=== PATIENT | female | born 1975 | race Two or more races ===

== ENCOUNTER 2017-12-14 08:55 | Emergency (ER) | payer MEDICAID ==
[~2017-12-14] VITALS: Ht 157.5 cm; Wt 105.7 kg
[2017-12-14 10:10] LABS: Urine Bacteria NONE SEEN /hpf (None Seen); Urine Blood 3+ /uL (Negative); Urine Specific Gravity 1.014 (1.001-1.035); Urine WBC 184 /hpf (0 - 5)
[2017-12-14 10:24] LABS: Basophils # (auto) 0 uL; Basophils % (auto) 0.4 % (0.0-2.0); Eosinophils # (auto) 0.1 uL; Eosinophils % (auto) 1.9 % (0.0-7.0); Hematocrit 29.3 % (36.0-46.0); Hemoglobin 9.5 g/dL (12.2-16.2); Lymphocytes # (auto) 2.2 uL; Lymphocytes % (auto) 30.5 % (10.0-50.0); Mean Corpuscular Hemoglobin 27.3 pg (28.0-32.0); Mean Corpuscular Hgb Conc. 32.5 g/dL (32.0-36.0); Mean Corpuscular Volume 83.9 fL (80.0-100.0); Monocytes # (auto) 0.5 uL; Monocytes % (auto) 6.6 % (0.0-12.0); Neutrophils # (auto) 4.4 uL; Neutrophils % (auto) 60.6 % (37.0-80.0); Nucleated Red Blood Cells % 0.1 %; Platelet Count (auto) 396 10^3/uL (140-450); Red Blood Cells 3.49 10^6/uL (4.0-5.20); Red Cell Distribution Width 17.8 % (11.8-14.3); White Blood Cell 7.3 10^3/uL (4.4-10.8)
[2017-12-14 10:45] LABS: Albumin 3.1 g/dL (3.4-5.0); BUN/Creatinine Ratio 12.2; Bilirubin, Total 0.1 mg/dL (0.2-1.0); Calcium 8.3 mg/dL (8.5-10.1); Potassium 3.9 mmol/L (3.5-5.1)
[2017-12-14] MEDS ORDERED: medroxyPROGESTERone ACETATE 5 MG TAB PO ONE (12:15)
[2017-12-14 12:36] VITALS: BP 154/76
== END 2017-12-14 12:49 | disposition home or self-care (01) ==
LOC: ER 08:55
DX: N92.0 Excessive and frequent menstruation with regular cycle (principal)
CPT/HCPCS: 36415; 76856; 80053; 81001; 84702; 85025

== ENCOUNTER 2020-12-16 21:08 | Emergency (ER) | payer MEDICAID, OTHER ==
[~2020-12-16] VITALS: Ht 157.5 cm; Wt 104.3 kg
[2020-12-16 23:21] VITALS: BP 145/83
== END 2020-12-16 23:50 | disposition home or self-care (01) ==
LOC: ER 21:09
DX: K64.4 Residual hemorrhoidal skin tags (principal); E03.9 Hypothyroidism, unspecified; Z86.2 Personal history of diseases of the blood and blood-forming organs and certain disorders involving the immune mechanism

== ENCOUNTER 2024-07-05 11:31 | Emergency (ER) | payer MEDICAID, OTHER ==
[~2024-07-05] VITALS: Ht 157.5 cm; Wt 112.0 kg
[2024-07-05 13:46] LABS: Urine Bacteria FEW /hpf (None Seen); Urine Blood 3+ /uL (Negative); Urine Clarity Clear (Clear); Urine Color Light-Yellow (Yellow); Urine Protein, UAD TRACE (Negative); Urine Squamous Epithelial Cell FEW /hpf (<5); Urine Urobilinogen Normal (Negative); Urine WBC 10 /HPF (0-5)
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
[2024-07-05 14:01] LABS: Chloride 107 mmol/L (98-107); Potassium 3.9 mmol/L (3.5-5.1); Sodium 140 mmol/L (136-145)
[2024-07-05 14:02] LABS: Anion Gap 6 (5-15); Calcium 9.7 mg/dL (8.7-10.4); Carbon Dioxide 27 mmol/L (20-31)
[2024-07-05 14:04] LABS: Basophils # (auto) 0 10 ^3/uL (0-0.2); Basophils % (auto) 0.5 % (0.0-2.0); Eosinophils # (auto) 0.1 10 ^3/uL (0-0.8); Eosinophils % (auto) 1.5 % (0.0-7.0); Hematocrit 40.5 % (36.0-46.0); Hemoglobin 13.2 g/dL (12.2-16.2); Lymphocytes # (auto) 2.7 10 ^3/uL (0.4-5.4); Lymphocytes % (auto) 34.5 % (10.0-50.0); Mean Corpuscular Hemoglobin 27.1 pg (28.0-32.0); Mean Corpuscular Hgb Conc. 32.6 g/dL (32.0-36.0); Mean Corpuscular Volume 83.2 fL (80.0-100.0); Monocytes # (auto) 0.5 10 ^3/uL (0-1.3); Monocytes % (auto) 5.8 % (0.0-12.0); Neutrophils # (auto) 4.5 10 ^3/uL (1.6-8.6); Neutrophils % (auto) 57.7 % (37.0-80.0); Nucleated Red Blood Cells % 0.3 %; Platelet Count (auto) 390 10^3/uL (140-450); Red Blood Cells 4.87 10^6/uL (4.0-5.20); White Blood Cell 7.7 10^3/uL (4.4-10.8)
[2024-07-05 14:07] LABS: Glucose 93 mg/dL (74-106)
[2024-07-05 14:08] LABS: Red Cell Distribution Width 20.4 % (11.8-14.3)
[2024-07-05 14:09] LABS: Blood Urea Nitrogen 9 mg/dL (9-23)
[2024-07-05 14:21] VITALS: BP 118/71; PULSE 61; RESP 18; TEMP 98.1; O2SAT 99
[2024-07-05] MEDS ORDERED: IBUP-1454 PO (14:26)
[2024-07-05] MEDS ORDERED: NITR-87 PO (14:26)
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
== END 2024-07-05 14:38 | disposition home or self-care (01) ==
LOC: ER 11:31
DX: N39.0 Urinary tract infection, site not specified (principal); R68.84 Jaw pain; Z98.890 Other specified postprocedural states; Y04.8XXA Assault by other bodily force, initial encounter; Y93.89 Activity, other specified; Y92.89 Other specified places as the place of occurrence of the external cause; Y99.8 Other external cause status
CPT/HCPCS: 36415; 70486; 80048; 81001; 85025

== ENCOUNTER 2025-01-10 18:17 | Inpatient (IN) | payer BC, MEDICAID ==
[~2025-01-10] VITALS: Ht 165.1 cm; Wt 76.3 kg
[~2025-01-10 18:17] MED LIST: IBUP-1454 PO; NITR-87 PO
[2025-01-10 18:45] LABS: Hematocrit 37.5 % (36.0-46.0); Hemoglobin 12.8 g/dL (12.2-16.2); Mean Corpuscular Hemoglobin 30.1 pg (28.0-32.0); Mean Corpuscular Volume 87.9 fL (80.0-100.0); Nucleated Red Blood Cells % 0.2 %
--- NOTE | 2025-01-10 18:53 | ED.PDOC ---
HPI Comments HPI: 49 year old female presents to the emergency department with a chief complaint of chest pain onset 2 weeks. Patient has been experiencing intermittent anterior chest pain for the past 2 weeks, pain radiates to Rt arm. For the past 3 days, patient has been experiencing headache as well as nausea. Denies fever, chills, cough, cold, congestion, shortness of breath, numbness/tingling, fall, injury, dizziness, blurred vision. No other symptoms or modifying factors present at this time. Initial Vitals BP: 143/65 HR: 64 RR: 16 O2: 99% Temp: 98.1 F Past Medical History: DM, HLD, thyroid disease, IBS Past 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: , hernia repair Social History: Denies ETOH, smoking, and drug use. Medications: Denies Allergies: NKDA Patient states having family history of coronary artery disease on mother side HPI: Poor Historian. REVIEW OF SYSTEMS: CONSTITUTIONAL: Denies acute: fever, diaphoresis, chills, HEAD: Denies acute: photophobia Eyes: Denies acute: Double vision, vision loss, eye pain, eye discharge. EARS: Denies acute: tinnitus, hearing loss, ear discharge, ear pain, THROAT: Denies acute: sore throat, swelling, difficulty swallowing , pain with swallowing, change in voice. NECK: Denies acute: neck pain, neck swelling, stiff neck. HEART: Denies acute : , palpitations, LUNGS: Denies acute: SOB, wheezing, cough, hemoptysis ABDOMEN: Denies acute: abdominal pain, Vomiting, diarrhea, melena , hematemesis, hematochezia SKIN: Denies acute: rash, redness, lesions, itchiness. EXTREMITIES: Denies acute: calf pain, numbness, tingling, weakness, Denies acute: Low back pain. Neuro: Denies acute: focal neurological deficit, motor or sensory focal neurological deficit, tremors, seizure like activity, confusion, dizziness, change in mental status, loss of bowel or bladder function, cauda equina like symptoms. : Denies acute: dysuria, hematuria, flank pain, increase in urinary frequency. PSYCH: Denies acute: hallucination, suicidal ideation, homicidal ideation. FEMALE: Denies acute: abnormal vaginal bleeding, foul odor, unusual discharge. PHYSICAL EXAM: General: -----mild---acute distress, awake and alert. Head: normocephalic, atraumatic. Neck: supple, trachea is midline, no swelling. Throat: Normal phonation. Eyes:, no erythema, no purulent discharge, no proptosis, no icterus. Heart: regular rate, regular rhythm, no significant murmur appreciated. Lungs: no apparent respiratory distress, Able to speak in full sentences. No wheezing, no rhonchi, no crackles. No stridors Clear to auscultation bilaterally. Abdomen: non tender to palpation, non distended, soft, no guarding, no rebound, + bowel sounds. Obese Neuro: Awake, Alert, oriented to name, self, situation, follows commands GCS=15. Speech is normal. Skin: no petechia, no purpura, no cyanosis, non-pale, not jaundice. Lower extremities: --no - Pitting edema no deformity, no focal swelling, no calf TTP. Makes eye contact. moves all four extremities. Face: no apparent facial droop. Ambulating in the ED independently. ED COURSE: DISCLAIMER: This medical document was created using an electronic medical record system with voice recognition software and computerized dictation system. Although this document has been carefully reviewed, there might still be some phonetic and typ ographical errors. Occasional wrong-word or "sound-alike" substitutions may have occurred due to the inherent limitations of voice recognition software. These areas are purely typographical due to imperfections of the software programs and do not reflect any compromise in the patient's medical care. Please read the chart carefully and recognize, using context, where these substitutions have occurred. Chief Complaint: Chest Pain Time Seen by MD: 18:25 Primary Care Provider: NEGRO Danielle Notes: Medications, Allergies Allergies: Coded Allergies: NO KNOWN ALLERGIES (Unverified , 10/26/17) Home Meds Active Scripts Ibuprofen (Ibuprofen) 600 Mg Tab, 1 TAB PO TID for 10 Days, #30 TAB 0 Refills Prov:CINDY ESPINAL COMPUTER TEACHER 07/05/24 Nitrofurantoin Monohydrate Mac (Macrobid) 100 Mg Cap, 100 MG PO BID for 7 Days, #14 CAP 0 Refills Prov:CINDY ESPINAL NP 07/05/24 Information Source: Patient Mode of Arrival: Ambulatory Severity: Moderate Timing: Weeks Duration: Intermittent Prehospital treatment: None Past Medical History PAST MEDICAL HISTORY: Anemia, DM, Gallstones, High Lipids, Thyroid 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 Was a procedure done?: No X-Ray, Labs, Meds, VS Vital Signs Date Time Temp Pulse Resp B/P (MAP) Pulse Ox O2 Delivery O2 Flow Rate FiO2 01/10/25 18:52 59 01/10/25 18:41 59 18 98 Room Air 01/10/25 18:41 98.2 59 18 144/81 (102) 98 98.2 01/10/25 18:26 98.1 64 16 143/65 99 98.1 01/10/25 18:21 59 Lab Test 01/10/25 19:25 01/10/25 18:36 01/10/25 18:25 Range/Units Troponin I High Sensitivity Pending < 3 L </=34 ng/L Urine Color Pending Urine Clarity Pending Urine pH Pending Urine Specific [place] Pending Urine Protein Pending Urine Ketones Pending Urine Blood Pending Urine Nitrite Pending Urine Bilirubin Pending Urine Urobilinogen Pending Urine Leukocyte Esterase Pending Urine RBC Pending Urine Microscopic WBC Pending Urine Squamous Epithelial Cells Pending Urine Bacteria Pending Urine Glucose Pending White Blood Count 9.0 4.4-10.8 10^3/uL Red Blood Count 4.26 4.0-5.20 10^6/uL Hemoglobin 12.8 12.2-16.2 g/dL Hematocrit 37.5 36.0-46.0 % Mean Corpuscular Volume 87.9 80.0-100.0 fL Mean Corpuscular Hemoglobin 30.1 28.0-32.0 pg Mean Corpuscular Hemoglobin Concent 34.3 32.0-36.0 g/dL Red Cell Distribution Width 13.6 11.8-14.3 % Platelet Count 411 140-450 10^3/uL Mean Platelet Volume 8.7 6.9-10.8 fL Neutrophils (%) (Auto) 54.6 37.0-80.0 % Lymphocytes (%) (Auto) 36.7 10.0-50.0 % Monocytes (%) (Auto) 6.3 0.0-12.0 % Eosinophils (%) (Auto) 2.0 0.0-7.0 % Basophils (%) (Auto) 0.4 0.0-2.0 % Neutrophils # (Auto) 4.9 1.6-8.6 10 ^3/uL Lymphocytes # (Auto) 3.3 0.4-5.4 10 ^3/uL Monocytes # (Auto) 0.6 0-1.3 10 ^3/uL Eosinophils # (Auto) 0.2 0-0.8 10 ^3/uL Basophils # (Auto) 0 0-0.2 10 ^3/uL Nucleated Red Blood Cells 0.2 % Sodium Level 142 136-145 mmol/L Potassium Level 3.7 3.5-5.1 mmol/L Chloride Level 107 98-107 mmol/L Carbon Dioxide Level 26 20-31 mmol/L Anion Gap 9 5-15 Blood Urea Nitrogen 8 L 9-23 mg/dL Creatinine 0.79 0.550-1.02 mg/dL Glomerular Filtration Rate Calc 92 >90 mL/min BUN/Creatinine Ratio 10.1 10.0-20.0 Serum Glucose 98 74-106 mg/dL Calcium Level 9.1 8.7-10.4 mg/dL [place] [id number] Ph: [phone] DIAGNOSTIC IMAGING Diagnostic Imaging Report : [id number] Signed PATIENT: IAN MURCIA ACCT: [id number] UNIT: [id number] : 1975 LOC: ER ROOM / BED: / AGE / SEX: 49 / F ADM STATUS: REG ER SERVICE [id number] ORDERING PHYSICIAN: PRIETO VILLEGAS PROCEDURE(s): CXR1 - CHEST XRAY 1 VIEW REASON: cp ORDER NUMBER(s): [id number], ACCESSION NUMBER(s): [id number] CLINICAL HISTORY: cp TECHNIQUE: Single view of the chest was obtained. COMPARISON: CHEST XRAY 1 VIEW on DOS: 11/05/20 FINDINGS: The heart size and pulmonary vasculature are normal. The lungs are clear. IMPRESSION: NO ACUTE CARDIOPULMONARY PROCESS. ATED BY: KARELY PEÑA MD DICTATED DATE/TIME: 01/10/251902 SIGNED BY: KARELY PEÑA MD SIGNED DATE/TIME: 01/10/251902 CC: Time of 1ST Reevaluation: 18:55 Reevaluation 1ST: Unchanged Patient Education/Counseling: Diagnosis, Treatment Family Education/Counseling: No Family Present Departure 1 Departure Time of Disposition: 18:55 Impression: Primary Impression: Chest pain Disposition: ADMITTED INPATIENT Admit to: Tele Condition: Guarded Discharged With: Self Critical Care Note Critical Care Time?: No I personally scribed for ENA LU DO ([email or web address]) on 01/10/25 at 18:52. Electronically submitted by Qiana Connors ([email or web address]). I personally scribed for ENA LU DO ([email or web address]) on 01/10/25 at 19:36. Electronically submitted by Qiana Connors ([email or web address]). ENA LU DO Jan 10, 2025 18:52
[2025-01-10 18:55] LABS: Potassium 3.7 mmol/L (3.5-5.1); Sodium 142 mmol/L (136-145)
[2025-01-10 18:56] LABS: Anion Gap 9 (5-15); Calcium 9.1 mg/dL (8.7-10.4); Carbon Dioxide 26 mmol/L (20-31)
[2025-01-10 19:01] LABS: BUN/Creatinine Ratio 10.1 (10.0-20.0); Blood Urea Nitrogen 8 mg/dL (9-23); Chloride 107 mmol/L (98-107); Glucose 98 mg/dL (74-106)
--- NOTE | 2025-01-10 19:06 | DVH ---
CLINICAL HISTORY: cp TECHNIQUE: Single view of the chest was obtained. COMPARISON: CHEST XRAY 1 VIEW on DOS: 11/05/20 FINDINGS: The heart size and pulmonary vasculature are normal. The lungs are clear. IMPRESSION: NO ACUTE CARDIOPULMONARY PROCESS.
[2025-01-10 19:34] LABS: Urine Protein, UAD Negative (Negative)
[2025-01-10] MEDS: ASPirin-EC 325mg tab PO ONE (19:48)
--- NOTE | 2025-01-10 20:37 | DVHHPRES ---
History of Present Illness Resident Creating Document: SANDRA PAIGE RESIDENT History of Present Illness This is a 49 year old female with past medical history of diabetes mellitus type 2, hyperlipidemia, thyroid disease, presented to the ER with chief complain of chest pain. Pain started suddenly 2-4 weeks back, located in the right side of the chest, alternates between the left and right side, described as sharp, stabbing, 8/10, lasting for few seconds, relieved with putting pressure on chest, no aggravating factors. The pain is radiating to the right arm. Pain is associated with shortness of breaths, lasting for few sec. She also complains of associated nausea, tingling in hands, dizziness headache. Dizziness started 2 weeks ago, intermittent, no aggravating or relieving factors. Headache onset 3 days ago, located in frontal area, described as achy pain. PMHx: Hypothyroidism, diabetes mellitus type 2, anemia, hyperlipidemia PSHx: 2 sections Social history: Occasional alcohol use, denies smoking or recreational drug use. Lives in home with family. Full Code, next to kin is daughterMagdalena medication: Levothyroxine, metformin. Reports using muscle relaxant and ibuprofen for back pain. Allergic history: No known allergies Patient was examined at bedside today. She is hemodynamically stable, she is admitted for further evaluation and management. Review of Systems Review of Systems ROS: Constitutional: Denies weight loss, fever and chills. HEENT: Denies changes in vision and hearing. Respiratory: Denies shortness of breath and cough Cardiovascular: Denies chest discomfort or palpitations GI: Denies abdominal pain, nausea, vomiting and diarrhea. : Denies dysuria and urinary frequency. Musculoskeletal: Denies myalgias and joint pain Skin: Denies rash and pruritus. Neurological: Denies dizziness, headache, vision or hearing problems Allergies: Coded Allergies: NO KNOWN ALLERGIES (Unverified , 10/26/17) Exam Vital Signs Vital Signs Date Time Temp Pulse Resp B/P (MAP) Pulse Ox O2 Delivery O2 Flow Rate FiO2 01/10/25 18:52 59 01/10/25 18:41 18 98 Room Air 01/10/25 18:41 98.2 144/81 (102) 98.2 Exam General: Patient alert and oriented in person, place and time. Patient following commands. HEENT: Normocephalic, atraumatic, moist mucous membranes Respiratory/pulmonary: Clear lungs bilaterally, vesicular murmurs present in almost all lung garcia, no associated crackles or wheezes. Mild tenderness on palpation of left and right chest Cardiovascular: Distant heart sounds Abdomen: Mild tenderness on palpation in epigastric area Extremities: Grade 1 pitting edema in bilateral feet Peripheral Pulses: 3+ Radial (R). 3+ Radial (L). 3+ Dorsalis pedis (R). 3+ Dorsalis pedis(L) Skin: No rashes or pruritus, there is no sacral edema present at this time. Neurological: Normal motor and sensory strength in all 4 extremities. Intact cranial nerves with no focal neurologic deficits Labs/Xrays Labs Test 01/10/25 19:25 01/10/25 18:36 01/10/25 18:25 Range/Units Troponin I High Sensitivity < 3 L </=34 ng/L Urine Color Light-yellow Yellow Urine Clarity Clear Clear Urine pH 6.5 5.0-9.0 Urine Specific [place] 1.013 1.001-1.035 Urine Protein Negative Negative Urine Ketones Negative Negative Urine Blood 3+ H Negative /uL Urine Nitrite Negative Negative Urine Bilirubin Negative Negative Urine Urobilinogen Normal Negative mg/dL Urine Leukocyte Esterase Negative Negative /uL Urine RBC 7 0 - 4 /hpf Urine Microscopic WBC 2 0-5 /HPF Urine Squamous Epithelial Cells Few <5 /hpf Urine Bacteria Few H None Seen /hpf Urine Glucose Normal Normal mg/dL White Blood Count 9.0 4.4-10.8 10^3/uL Red Blood Count 4.26 4.0-5.20 10^6/uL Hemoglobin 12.8 12.2-16.2 g/dL Hematocrit 37.5 36.0-46.0 % Mean Corpuscular Volume 87.9 80.0-100.0 fL Mean Corpuscular Hemoglobin 30.1 28.0-32.0 pg Mean Corpuscular Hemoglobin Concent 34.3 32.0-36.0 g/dL Red Cell Distribution Width 13.6 11.8-14.3 % Platelet Count 411 140-450 10^3/uL Mean Platelet Volume 8.7 6.9-10.8 fL Neutrophils (%) (Auto) 54.6 37.0-80.0 % Lymphocytes (%) (Auto) 36.7 10.0-50.0 % Monocytes (%) (Auto) 6.3 0.0-12.0 % Eosinophils (%) (Auto) 2.0 0.0-7.0 % Basophils (%) (Auto) 0.4 0.0-2.0 % Neutrophils # (Auto) 4.9 1.6-8.6 10 ^3/uL Lymphocytes # (Auto) 3.3 0.4-5.4 10 ^3/uL Monocytes # (Auto) 0.6 0-1.3 10 ^3/uL Eosinophils # (Auto) 0.2 0-0.8 10 ^3/uL Basophils # (Auto) 0 0-0.2 10 ^3/uL Nucleated Red Blood Cells 0.2 % Sodium Level 142 136-145 mmol/L Potassium Level 3.7 3.5-5.1 mmol/L Chloride Level 107 98-107 mmol/L Carbon Dioxide Level 26 20-31 mmol/L Anion Gap 9 5-15 Blood Urea Nitrogen 8 L 9-23 mg/dL Creatinine 0.79 0.550-1.02 mg/dL Glomerular Filtration Rate Calc 92 >90 mL/min BUN/Creatinine Ratio 10.1 10.0-20.0 Serum Glucose 98 74-106 mg/dL Calcium Level 9.1 8.7-10.4 mg/dL SEPSIS Sepsis Screen Date sepsis recognized/suspect: Jan 10, 2025 Time Sepsis recognized/suspect: 1817 Recent Procedure: No On Antibiotic Therapy: No Respiratory Rate >20: No Heart Rate >90: No Temp<36 C (96.8 F) or >38.3 C: No SBP <90 or MAP <65 mmHG: No New Acute Mental Status Change: No Is the patient on CPAP, BIPAP,: No Physician Orders Electrocardigram (01/10/25 18:25) Troponin-I Hs (01/10/25 21:25) Electrocardigram (01/10/25 19:25) Electrocardigram (01/10/25 21:25) Chest Xray 1 View (01/10/25 18:36) Vital Signs Date Time Temp Pulse Resp B/P (MAP) Pulse Ox O2 Delivery O2 Flow Rate FiO2 01/10/25 18:52 59 01/10/25 18:41 59 18 98 Room Air 01/10/25 18:41 98.2 59 18 144/81 (102) 98 98.2 01/10/25 18:26 98.1 64 16 143/65 99 98.1 01/10/25 18:21 59 Laboratory Tests Test 01/10/25 18:25 White Blood Count 9.0 10^3/uL (4.4-10.8) Medications Medications Dose Ordered Sig/Doe Route Start Time Stop Time Status Last Admin Dose Admin Aspirin 325 mg ONCE ONCE PO 01/10/25 19:00 01/10/25 19:21 DC 01/10/25 19:48 325 MG Assessment/Plan Assessment/Plan Presyncope, rule out cardiac causes Chest pain, ruled out ACS Echocardiogram ordered Orthostatic Vitals ordered EKG shows no acute changes, troponin WNL CXR shows no acute cardiopulmonary process Monitor on telemetry for life-threatening arrhythmias Due to high likelihood of noncardiac chest pain, did not indicate aspirin nor atorvastatin. Await echocardiogram results. Hypothyroidism TSH Continue levothyroxine Dyslipidemia Discussed lifestyle changes and [id number] fish oil supplementation ASCVD less than 4.3%; no statin indicated at this time Acute gastritis, possible Start Protonix 40 mg daily Discussed trial of smaller, more frequent meals. Avoid NSAIDS, foods Triggers like spicy, acidic, fried, and fatty foods. Limit Caffeine, highly processed foods and sugars. Discussed incorporating High-Fiber diet and staying hydrated. DIET: Cardiac DVT PROPHYLAXIS: Lovenox GI PROPHYLAXIS: Protonix CODE STATUS: Goals of care discussed with patient at bedside for more than 35 minutes. Full code DISPOSITION: Telemetry Patient's status and plan discussed with the patient. Case discussed with Dr. Lion Plan discussed with: Patient, Other (Nurses) Date of Service: Jan 10, 2025 Billing Provider: BLESSING LION MD Common Visit Codes: 08762-LWQSRCA INP/OBS CARE (HIGH) Secondary Visit Codes: 14594-[id number] CARE PLAN 30 MINUTES SANDRA PAIGE RESIDENT Jan 10, 2025 20:37 FANNIE ALBERT RESIDENT Jan 11, 2025 06:25
--- NOTE | 2025-01-10 20:48 | ECG ---
[facility] Test Date: 2025-01-10 Test Time: 18:21:54 Pat Name: AIN MURCIA Department: ED Room: Gender: F Mold Checker: dr MYLESB: 1975 Requested By: FRANKIE STOVALL Order Number: [id number] Reading MD: Measurements Intervals [place] Rate: 59 P: 31 SC: 137 QRS: 43 QRSD: 102 T: 10 QT: 423 QTc: 419 Interpretive Statements Sinus rhythm Borderline T abnormalities, anterior leads Please click the below link to view image of tracing.
--- NOTE | 2025-01-10 20:48 | ECG ---
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
--- NOTE | 2025-01-10 21:20 | ECG ---
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
[2025-01-10 21:51] LABS: INR 0.96 (0.9-1.15); Partial Thromboplastin Time 28.5 SEC (24.5-34.5); Prothrombin Time 10.2 sec (9.3-11.8)
[2025-01-10 22:03] LABS: Alanine Aminotransferase 25 U/L (7-40); Albumin 4.3 g/dL (3.2-4.8); Alkaline Phosphatase 100 U/L (46-116); Cholesterol 180 mg/dL (< 200); Magnesium 2.0 mg/dL (1.6-2.6); Total Protein 7.6 g/dL (5.7-8.2)
[2025-01-10 22:07] LABS: Bilirubin, Direct < 0.1 mg/dL (<0.3); Bilirubin, Total 0.2 mg/dL (0.2-1.0); HDL Cholesterol 33 mg/dL (40-59); Triglycerides 244 mg/dL (< 150)
[2025-01-10 22:16] LABS: Lipase 38 U/L (12-53)
[2025-01-10] MEDS ORDERED: MORPHINE SULFATE INJ 2 MG/ml SYRG IV PRN (23:15)
[2025-01-10] MEDS ORDERED: ACETAMINOPHEN 325 MG TAB PO PRN (23:15)
[2025-01-10] MEDS ORDERED: ENOXAPARIN SOD 40 MG/0.4 ML SYRINGE SC SCH (23:15)
[2025-01-10 23:40] LABS: Amphetamine Screen, Urine Neg (NEGATIVE); Barbiturate Scree,Urine Neg (NEGATIVE); Benzodiazephine Screen, Urine Neg (NEGATIVE); Cannabinoid Screen, Urine Neg (NEGATIVE); Cocaine Screen, Urine Neg (NEGATIVE); Opiate Scree,Urine Neg (NEGATIVE); Phencyclidine Screen, Urine Neg (NEGATIVE)
[2025-01-11] VITALS (8 sets, daily range): BP systolic 124–147; BP diastolic 72–108; PULSE 50–97; RESP 15–18; TEMP 97.8–98.4; O2SAT 95–100
[2025-01-11] MEDS ORDERED: MAALOX PLUS or MAALOX 30 ML PO PRN (00:45)
[2025-01-11] MEDS ORDERED: DEXTROSE (50%) 50ML SYRG IV PRN (01:00)
[2025-01-11] MEDS: ENOXAPARIN SOD 40 MG/0.4 ML SYRINGE SC SCH (03:11)
[2025-01-11] MEDS: LEVOTHYROXINE SODIUM 25 MCG TAB PO SCH (06:21)
[2025-01-11] MEDS: ACCU-CHEK COMFORT CURVE STRIP VI SCH (06:21)
[2025-01-11] MEDS: PANTOPRAZOLE 40 MG TAB PO SCH (06:21)
[2025-01-11] MEDS: InsuLIN REG 1unit/0.01ml Soln (100units/ml) SC SCH (06:33)
[2025-01-11 06:53] LABS: Hematocrit 37.2 % (36.0-46.0); Hemoglobin 12.8 g/dL (12.2-16.2); Mean Corpuscular Hemoglobin 30.1 pg (28.0-32.0); Mean Corpuscular Volume 87.8 fL (80.0-100.0); Nucleated Red Blood Cells % 0.2 %
[2025-01-11 07:17] LABS: Alanine Aminotransferase 24 U/L (7-40); Albumin 4.1 g/dL (3.2-4.8); Alkaline Phosphatase 94 U/L (46-116); Anion Gap 11 (5-15); BUN/Creatinine Ratio 12.8 (10.0-20.0); Blood Urea Nitrogen 11 mg/dL (9-23); Calcium 9.0 mg/dL (8.7-10.4); Carbon Dioxide 26 mmol/L (20-31); Chloride 105 mmol/L (98-107); Potassium 3.7 mmol/L (3.5-5.1); Sodium 142 mmol/L (136-145); Total Protein 7.2 g/dL (5.7-8.2)
[2025-01-11 07:20] LABS: Bilirubin, Total 0.3 mg/dL (0.2-1.0); Glucose 118 mg/dL (74-106)
[2025-01-11] MEDS ORDERED: CYCL-837 PO (16:12)
--- NOTE | 2025-01-11 19:11 | DVHDSRES ---
Discharge Summary Date of Admission Resident Creating Document: IAN SANCHEZ Jan 10, 2025 at 23:10 Date of Discharge: Jan 11, 2025 Admitting Diagnosis ACS Labs/Diagnostic Data: Laboratory Results Test 01/11/25 11:02 01/11/25 06:20 01/10/25 19:25 01/10/25 18:36 POC Glucose 174 mg/dl (70-106) White Blood Count 6.4 10^3/uL (4.4-10.8) Red Blood Count 4.24 10^6/uL (4.0-5.20) Hemoglobin 12.8 g/dL (12.2-16.2) Hematocrit 37.2 % (36.0-46.0) Mean Corpuscular Volume 87.8 fL (80.0-100.0) Mean Corpuscular Hemoglobin 30.1 pg (28.0-32.0) Mean Corpuscular Hemoglobin Concent 34.3 g/dL (32.0-36.0) Red Cell Distribution Width 13.5 % (11.8-14.3) Platelet Count 410 10^3/uL (140-450) Mean Platelet Volume 8.7 fL (6.9-10.8) Neutrophils (%) (Auto) 49.0 % (37.0-80.0) Lymphocytes (%) (Auto) 39.0 % (10.0-50.0) Monocytes (%) (Auto) 8.4 % (0.0-12.0) Eosinophils (%) (Auto) 3.2 % (0.0-7.0) Basophils (%) (Auto) 0.4 % (0.0-2.0) Neutrophils # (Auto) 3.1 10 ^3/uL (1.6-8.6) Lymphocytes # (Auto) 2.5 10 ^3/uL (0.4-5.4) Monocytes # (Auto) 0.5 10 ^3/uL (0-1.3) Eosinophils # (Auto) 0.2 10 ^3/uL (0-0.8) Basophils # (Auto) 0 10 ^3/uL (0-0.2) Nucleated Red Blood Cells 0.2 % Sodium Level 142 mmol/L (136-145) Potassium Level 3.7 mmol/L (3.5-5.1) Chloride Level 105 mmol/L (98-107) Carbon Dioxide Level 26 mmol/L (20-31) Anion Gap 11 (5-15) Blood Urea Nitrogen 11 mg/dL (9-23) Creatinine 0.86 mg/dL (0.550-1.02) Glomerular Filtration Rate Calc 83 mL/min (>90) BUN/Creatinine Ratio 12.8 (10.0-20.0) Serum Glucose 118 mg/dL (74-106) Calcium Level 9.0 mg/dL (8.7-10.4) Total Bilirubin 0.3 mg/dL (0.2-1.0) Aspartate Amino Transferase (AST) 24 U/L (13-40) Alanine Aminotransferase (ALT) 24 U/L (7-40) Alkaline Phosphatase 94 U/L (46-116) Total Protein 7.2 g/dL (5.7-8.2) Albumin 4.1 g/dL (3.2-4.8) Phosphorus Level 3.3 mg/dL (2.4-5.1) Magnesium Level 2.0 mg/dL (1.6-2.6) Direct Bilirubin < 0.1 mg/dL (<0.3) Troponin I High Sensitivity < 3 ng/L (</=34) C-Reactive Protein High Sensitivity 0.98 mg/dL (<1.0) Triglycerides Level 244 mg/dL (< 150) Cholesterol Level 180 mg/dL (< 200) LDL Cholesterol 119 mg/dL (< 100) HDL Cholesterol 33 mg/dL (40-59) Lipase 38 U/L (12-53) Urine Color Light-yellow (Yellow) Urine Clarity Clear (Clear) Urine pH 6.5 (5.0-9.0) Urine Specific [place] 1.013 (1.001-1.035) Urine Protein Negative (Negative) Urine Ketones Negative (Negative) Urine Blood 3+ /uL (Negative) Urine Nitrite Negative (Negative) Urine Bilirubin Negative (Negative) Urine Urobilinogen Normal mg/dL (Negative) Urine Leukocyte Esterase Negative /uL (Negative) Urine RBC 7 /hpf (0 - 4) Urine Microscopic WBC 2 /HPF (0-5) Urine Squamous Epithelial Cells Few /hpf (<5) Urine Bacteria Few /hpf (None Seen) Urine Glucose Normal mg/dL (Normal) Urine Opiates Screen Neg (NEGATIVE) Urine Fentanyl Screen Neg (NEGATIVE) Urine Barbiturates Screen Neg (NEGATIVE) Urine Phencyclidine Screen Neg (NEGATIVE) Urine Amphetamines Screen Neg (NEGATIVE) Urine Benzodiazepines Screen Neg (NEGATIVE) Urine Cocaine Screen Neg (NEGATIVE) Urine Cannabinoids Screen Neg (NEGATIVE) Test 01/10/25 18:25 Prothrombin Time 10.2 sec (9.3-11.8) Prothrombin Time INR 0.96 (0.9-1.15) Activated Partial Thromboplast Time 28.5 SEC (24.5-34.5) Vitamin B12 Level 427 pg/mL (211-911) Vitamin D 25-Hydroxy 30.6 ng/mL (30.0-100) Thyroid Stimulating Hormone (TSH) 4.09 uIU/mL (0.55-4.78) Other Laboratory Tests 01/11/25 06:20 Brief Hx & Hospital Course: Ms Murcia, is a 49 year old female with past medical history of diabetes mellitus type 2, hyperlipidemia, thyroid disease, presented to the ER with chief complain of chest pain. Pain started suddenly 2-4 weeks back, located in the right side of the chest, alternates between the left and right side, described as sharp, stabbing, 8/10, lasting for few seconds, relieved with putting pressure on chest, no aggravating factors. The pain is radiating to the right arm. Pain is associated with shortness of breaths, lasting for few sec. She also complains of associated nausea, tingling in hands, dizziness headache. Dizziness started 2 weeks ago, intermittent, no aggravating or relieving factors. Headache onset 3 days ago, located in frontal area, described as achy pain. PMHx: Hypothyroidism, diabetes mellitus type 2, anemia, hyperlipidemia PSHx: 2 sections Social history: Occasional alcohol use, denies smoking or recreational drug use. Lives in home with family. Full Code, next to kin is daughterMagdalena Home medication: Levothyroxine, metformin. Reports using muscle relaxant and ibuprofen for back pain. Allergic history: No known allergies On further evaluation of her chest pain, EKG shows no acute changes, troponin was found to be within normal limits. Chest x-ray shows no acute cardiopulmonary process. The patient was monitored on telemetry for life- threatening arrhythmias, however, it showed sinus bradycardia, the patient had no symptoms. Due to high likelihood of noncardiac chest pain no aspirin or atorvastatin was given. Echocardiogram was completed, results was pending. Continued her home medications levothyroxine. Because of dyslipidemia we counseled the patient for healthy lifestyle modifications they and fish oil supplementation. ASCVD score was only 4.3%, no statin was indicated. She was treated with a Protonix for possible acute gastritis. She was given DVT prophylaxis Lovenox during her stay. On the day of discharge, the patient was hemodynamically stable, verbalized understanding of discharge plan. The patient was advised to follow up with PCP. General: Patient alert and oriented in person, place and time. Patient following commands. HEENT: Normocephalic, atraumatic, moist mucous membranes Respiratory/pulmonary: Clear lungs bilaterally, vesicular murmurs present in almost all lung garcia, no associated crackles or wheezes. Mild tenderness on palpation of left and right chest Cardiovascular: Distant heart sounds Abdomen: Mild tenderness on palpation in epigastric area Extremities: No edema Peripheral Pulses: 3+ Radial (R). 3+ Radial (L). 3+ Dorsalis pedis (R). 3+ Dorsalis pedis(L) Skin: No rashes or pruritus, there is no sacral edema present at this time. Neurological: Normal motor and sensory strength in all 4 extremities. Intact cranial nerves with no focal neurologic deficits Operations or Procedures PATIENT: IAN MURCIA ACCT: [id number] UNIT: [id number] : 1975 LOC: ER ROOM / BED: / AGE / SEX: 49 / F ADM STATUS: REG ER SERVICE 35 ORDERING PHYSICIAN: PRIETO VILLEGAS PROCEDURE(s): CXR1 - CHEST XRAY 1 VIEW REASON: ORDER NUMBER(s): [id number], ACCESSION NUMBER(s): [id number] CLINICAL HISTORY: cp TECHNIQUE: Single view of the chest was obtained. COMPARISON: CHEST XRAY 1 VIEW on DOS: 11/05/20 FINDINGS: The heart size and pulmonary vasculature are normal. The lungs are clear. IMPRESSION: NO ACUTE CARDIOPULMONARY PROCESS. 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 Echocardiogram: Results pending Condition at Discharge: Stable Final Diagnosis/Problems List Chest pain likely musculoskeletal Sinus bradycardia, asymptomatic Presyncope, rule out cardiac causes Chest pain, ruled out ACS Hypothyroidism Dyslipidemia Acute gastritis, possible Discharge Disposition: Home Discharge Instruct/Medications Diet: Cardiac 2g Na,low cholest Activity: No Restrictions, As Tolerated Follow Up/Referral: Follow up in the discharge clinic in one week F/up with the PCP in one week Medications: Ibuoprofen 600mg twice as needed for chest pain cyclobenzaprine 5mg twice daily as needed for spasm/pain continue on levothyroxine Scheduled Ibuprofen (Ibuprofen), 1 TAB PO TID Scheduled PRN Cyclobenzaprine Hcl (Cyclobenzaprine Hcl), 5 MG PO BID PRN Discontinued Medications Nitrofurantoin Monohydrate Mac (Macrobid), 100 MG PO BID Discharge Statement: "Patient was advised to return to the ER or call 911 if any headaches, dizziness, shortness of breath, chest pain, abdominal pain, bleeding, fevers, or worsening of medical condition. Patient was counseled about treatment plan, medications, possible side effects, patientverbalized understanding. All questions were answered to the best of my ability. This discharge took greater then 30 minutes in planning, reviewing documentation, counseling the patient, and discussing with other team members." ASSESSMENT ASSESSMENT Assessment Chest pain likely musculoskeletal Sinus bradycardia, asymptomatic IAN SANCHEZ RESIDENT Jan 11, 2025 19:11
== END 2025-01-11 18:01 | disposition home or self-care (01) | DRG 392 ==
LOC: ER 18:17 → OVERFLOW 23:10 → TELE-WESTW 01-11 02:35
PROVIDERS: ADMIT Internal Medicine Geriatric Medicine; ATTEND Internal Medicine Geriatric Medicine
DX: K29.00 Acute gastritis without bleeding (principal); E78.5 Hyperlipidemia, unspecified; E11.9 Type 2 diabetes mellitus without complications; E03.9 Hypothyroidism, unspecified; R55 Syncope and collapse; Z82.49 Family history of ischemic heart disease and other diseases of the circulatory system; Z98.891 History of uterine scar from previous surgery
CPT/HCPCS: 36415; 71045; 80048; 80053; 80061; 80076; 80307; 81001; 82306; 82607; 82962; 83690; 83735; 84100; 84443; 84484; 85025; 85610; 85730; 86141; 93005; 93306; G0378